=== PATIENT | male | born 1985 | race Caucasian/White ===

== ENCOUNTER 2018-11-18 15:21 | Inpatient (IN) | payer OTHER ==
[~2018-11-18] VITALS: Ht 188 cm; Wt 117.9 kg
[2018-11-18] MEDS ORDERED: HYDROCODON-ACE1 EAC7 PO (16:41)
[2018-11-18] MEDS ORDERED: KLONOPIN0.5 MG PO (16:42)
[2018-11-18 16:43] LABS: BASOPHILS 0.2 % (0-2); HEMATOCRIT 42.7 % (42.0-54.0); HEMOGLOBIN 15.2 g/dL (13.5-17.5); IMMATURE GRANULOCYTES 0.4 % (0-5); MCH 29.6 pg (26.0-34.0); MCHC 35.6 g/dL (31.0-37.0); MCV 83.1 fL (80.0-100.0); MEAN PLATELET VOLUME 9.7 fL (7.4-10.4); MONOCYTES 7.2 % (2-11); NEUTROPHILS 75.2 % (40-80); PLATELET COUNT 220 10x3/uL (130-400); RBC 5.14 10x6/uL (4.20-6.10); RDW 12.6 % (11.5-14.5); WBC 15.9 10x3/uL (4.8-10.8)
[2018-11-18] MEDS ORDERED: ZANAFLEX4 MG PO (16:44)
[2018-11-18 16:57] LABS: ALBUMIN 3.8 g/dL (3.4-5.0); ALKALINE PHOSPHATASE 80 U/L (46-116); ALT (SGPT) 27 U/L (10-68); BILIRUBIN - TOTAL 0.76 mg/dL (0.2-1.3); CALC OSMOLALITY 275 mosm/kg (275-300); CALCIUM 8.6 mg/dL (8.5-10.1); CARBON DIOXIDE 27.1 mmol/L (21.0-32.0); CHLORIDE - SERUM 101 mmol/L (98-107); CREATININE - SERUM 0.8 mg/dL (0.6-1.3); GLUCOSE 86 mg/dL (74-106); PROTEIN - SERUM 6.7 g/dL (6.4-8.2); SODIUM 139 mmol/L (136-145); UREA NITROGEN 9 mg/dL (7-18); eGFR NON AFRICAN AMERICAN > 90 mL/min (90-120)
[2018-11-18 17:03] VITALS: BP 158/72; Ht 188 cm; Wt 117.9 kg
[2018-11-18 18:57] LABS: APPEARANCE CLEAR (CLEAR); BILIRUBIN NEGATIVE (NEGATIVE); COLOR YELLOW (YELLOW); GLUCOSE NEGATIVE (NEGATIVE); KETONE NEGATIVE (NEGATIVE); NITRITE NEGATIVE (NEGATIVE); PROTEIN TRACE mg/dL (NEGATIVE); SPECIFIC GRAVITY 1.025 (1.005-1.020); UROBILINOGEN NORMAL (NORMAL)
--- NOTE | 2018-11-18 20:30 | NUR ---
PT SITTING UP IN BED WITHOUT DISTRESS, AOX4. IV LEFT HAND INFUSING NS @ 75. DENIES NEEDS. STATES PAIN 3/10 IN GROIN, HURTS WORSE WHEN AMBULATING. REQUESTED TO TAKE SHOWER, PT DID HIBI BATH AT THIS TIME. REMINDED PT HE IS NPO AFTER MN, VERBALIZED UNDERSTANDING. CONSENTS SIGNED. CL IN REACH, WILL CTM
[2018-11-18 20:34] VITALS: BP 126/69
--- NOTE | 2018-11-19 02:30 | NUR ---
PT STATES PAIN 8/10 AFTER AMBULATING TO BATHROOM. GAVE MORPHINE ORDERED, PT BEGAN FEELING NAUSEOUS, GAVE ZOFRAN. DENIES OTHER NEEDS. WILL CTM
[2018-11-19 04:32] LABS: BASOPHILS 0.2 % (0-2); EOSINOPHILS 2.4 % (0-7); HEMATOCRIT 40.2 % (42.0-54.0); IMMATURE GRANULOCYTES 0.2 % (0-5); LYMPHOCYTES 24.2 % (15-50); MCH 29.5 pg (26.0-34.0); MCHC 34.8 g/dL (31.0-37.0); MCV 84.8 fL (80.0-100.0); MEAN PLATELET VOLUME 9.7 fL (7.4-10.4); MONOCYTES 8.4 % (2-11); NEUTROPHILS 64.6 % (40-80); PLATELET COUNT 187 10x3/uL (130-400); RBC 4.74 10x6/uL (4.20-6.10); RDW 12.6 % (11.5-14.5); WBC 13.6 10x3/uL (4.8-10.8)
[2018-11-19 04:52] VITALS: BP 112/43
[2018-11-19 04:56] LABS: ALBUMIN 3.2 g/dL (3.4-5.0); ALKALINE PHOSPHATASE 73 U/L (46-116); ALT (SGPT) 23 U/L (10-68); BILIRUBIN - TOTAL 0.66 mg/dL (0.2-1.3); CALC OSMOLALITY 280 mosm/kg (275-300); CALCIUM 8.2 mg/dL (8.5-10.1); CARBON DIOXIDE 29.3 mmol/L (21.0-32.0); CHLORIDE - SERUM 105 mmol/L (98-107); CREATININE - SERUM 0.8 mg/dL (0.6-1.3); GLUCOSE 110 mg/dL (74-106); POTASSIUM - SERUM 4.4 mmol/L (3.5-5.1); PROTEIN - SERUM 6.4 g/dL (6.4-8.2); SODIUM 141 mmol/L (136-145); UREA NITROGEN 11 mg/dL (7-18); eGFR NON AFRICAN AMERICAN > 90 mL/min (90-120)
--- NOTE | 2018-11-19 07:25 | NUR ---
ALERT AND ORIENTED, RESTING IN BED. AT BEDSIDE. ABCESS TO RIGHT GROIN, RED AND WARM TO TOUCH. NO C/O PAIN. NO S/S OF ACUTE DISTRESS NOTED. IV TO LEFT HAND, NS INFUSING @ 75ML/HR. SITE PATENT WITHOUT REDNESS OR SWELLING. PT DENIES ANY NEEDS AT THIS TIME. CALL LIGHT IN REACH. WILL CONTINUE TO MONITOR.
[2018-11-19 07:55] VITALS: BP 128/71
[2018-11-19 12:32] VITALS: BP 127/73
[2018-11-19 13:30] VITALS: BP 131/73
[2018-11-19 18:24] VITALS: BP 130/60
--- NOTE | 2018-11-19 18:45 | NUR ---
I have reviewed this patient and I concur with the Shift Assessment completed by the Licensed Practical Nurse today this shift.
--- NOTE | 2018-11-19 19:08 | NUR ---
ALERT AND ORIENTED, RESTING IN BED. NO C/O PAIN. NO S/S OF ACUTE DISTRESS NOTED. CALL LIGHT IN REACH. PT DENIES ANY NEEDS.
--- NOTE | 2018-11-19 19:45 | NUR ---
PT SITTING UP IN BED WITHOUT DISTRESS, AOX4. PT JUST GOT BACK TO ROOM AFTER AMBULATING AROUND NURSES STATION. IV LEFT HAND INFUSING NS @ 75. DRESSING TO RIGHT GROIN CDI. DENIES NEEDS. CL IN REACH, WILL CTM
[2018-11-19 20:45] VITALS: BP 133/72
[2018-11-20 04:56] VITALS: BP 135/61
[2018-11-20 06:54] LABS: BASOPHILS 0.2 % (0-2); EOSINOPHILS 3.8 % (0-7); HEMATOCRIT 41.1 % (42.0-54.0); HEMOGLOBIN 14.2 g/dL (13.5-17.5); IMMATURE GRANULOCYTES 0.3 % (0-5); LYMPHOCYTES 20.4 % (15-50); MCH 29.3 pg (26.0-34.0); MCHC 34.5 g/dL (31.0-37.0); MCV 84.7 fL (80.0-100.0); MONOCYTES 8.4 % (2-11); NEUTROPHILS 66.9 % (40-80); RBC 4.85 10x6/uL (4.20-6.10); RDW 12.6 % (11.5-14.5); WBC 12.1 10x3/uL (4.8-10.8)
[2018-11-20 06:57] LABS: PLATELET COUNT 230 10x3/uL (130-400)
[2018-11-20 06:59] LABS: CALC OSMOLALITY 277 mosm/kg (275-300); CALCIUM 8.1 mg/dL (8.5-10.1); CARBON DIOXIDE 30.2 mmol/L (21.0-32.0); CHLORIDE - SERUM 104 mmol/L (98-107); CREATININE - SERUM 0.8 mg/dL (0.6-1.3); GLUCOSE 115 mg/dL (74-106); POTASSIUM - SERUM 4.3 mmol/L (3.5-5.1); SODIUM 140 mmol/L (136-145); UREA NITROGEN 8 mg/dL (7-18); eGFR NON AFRICAN AMERICAN > 90 mL/min (90-120)
--- NOTE | 2018-11-20 08:00 | NUR ---
ALERT AND ORIENTED. LUNGS CLEAR BILATERALLY IN ALL HUANG. HEART SOUNDS S1 AND S2 HEARD IN ALL HUANG. BOWEL SOUNDS ACTIVE X 4. DRSG IN PLACE TO RIGHT GROIN. IV TO LEFT HAND PATENT WITHOUT REDNESS. DENIES NEEDS. BED LOW. AT BEDSIDE. CALL MITCHELL AND PERSONAL ITEMS IN REACH. WILL CONTINUE TO MONITOR.
--- NOTE | 2018-11-20 08:08 | OP ---
PATIENT NAME: ALBINO PETTY MEDICAL RECORD: [id number] :85 LOCATION:D.MS [id number] ADMISSION DATE:11/18/18 SURGEON: HARISH REIS MD DATE OF OPERATION: 11/19/2018 SURGEON: Harish Reis MD PREOPERATIVE DIAGNOSIS: Right groin cellulitis with abscess. POSTOPERATIVE DIAGNOSIS: Right groin cellulitis with abscess. PROCEDURE PERFORMED: Incision and drainage of complicated multiloculated right groin abscess. Abscess was 10 cm in width, 8 cm in length and 6 cm in depth over the right groin. COMPLICATIONS: None. SPECIMENS: Anaerobic and aerobic tissue cultures. Case was grossly infected. ANESTHESIA: General. OPERATIVE COURSE: After consent was obtained, the patient was taken to the operating room and placed in the supine position on the operating table. Next, general anesthesia was given via endotracheal intubation after a timeout was performed to confirm the correct patient and procedure. The right groin was prepped and draped in typical sterile fashion. An incision was made with a 15-blade scalpel over the area of greatest fluctuance. Approximately, 80 cc of brown purulent fluid was expressed from wound. Anaerobic and aerobic cultures were collected. Specimen was sent for Gram stain. At this time, after the skin incision was made using blunt finger dissection, all loculations within the abscess cavity were bluntly dissected. The wound was then copiously irrigated with normal saline and peroxide. The abscess cavity measured 10 cm in greatest length x 8 cm in width x 6 cm in depth. Once the wound was irrigated and cleansed, a Kerlix soaked in half Betadine and half peroxide was packed into the abscess cavity. Thereafter, the wound was covered with sterile gauze and tape. At the end of the case, all needle and instrument was correct. No complications occurred. The patient was extubated and transferred to PACU in stable condition. TRANSINT:[id number] Voice Confirmation ID: [id number] DOCUMENT ID: [id number] HARISH REIS MD at 0808 CC: [id number] DICTATION DATE: 11/19/18 1454 GEAR FINISHER: 11/19/18 2347 ADM IN [place] [id number] [place] [address]
[2018-11-20 08:56] VITALS: BP 132/69
--- NOTE | 2018-11-20 09:43 | NUR ---
DRSG CHANGED TO RIGHT GROIN PER ORDER. NO SIGNS SYMPTOMS INFECTION PRESENT.
--- NOTE | 2018-11-20 10:59 | NUR ---
VANCOMYCIN CONTINUES INFUSING. WILL HANG MERREM AFTER VANC.
--- NOTE | 2018-11-20 11:26 | NUR ---
RESTING IN BED. AT BEDSIDE. DENIES PAIN. DENIES NEEDS. WILL CONTINUE TO MONITOR.
[2018-11-20 11:54] VITALS: BP 141/70
--- NOTE | 2018-11-20 14:33 | NUR ---
RESTING IN BED. DENIES NEEDS. WILL CONTINUE TO MONITOR.
[2018-11-20 17:28] VITALS: BP 129/63
[2018-11-20 20:55] VITALS: BP 118/65
[2018-11-21 05:56] VITALS: BP 119/67
--- NOTE | 2018-11-21 07:36 | NUR ---
ALERT AND ORIENTED. LUNGS CLEAR BILATERALLY IN ALL HUANG. HEART SOUNDS S1 AND S2 HEARD IN ALL HUANG. BOWEL SOUNDS ACTIVE X 4. DRSG INTACT TO RIGHT GROIN I/D INCISION. IV TO LEFT HAND PATENT WITHOUT REDNESS. DENIES PAIN. DENIES NEEDS. REFUSES SCDS. BED LOW. CALL MITCHELL AND PERSONAL ITEMS IN REACH. WILL CONTIUE TO [facility].
[2018-11-21] MEDS ORDERED: SULFAMETHOXAZOL1 TA2 PO (08:02)
[2018-11-21] MEDS ORDERED: HYDROCODON-ACE1 EAC7 PO (08:03)
[2018-11-21 08:16] VITALS: BP 130/74
[2018-11-21 09:02] LABS: BASOPHILS 0.3 % (0-2); EOSINOPHILS 5.6 % (0-7); HEMATOCRIT 41.2 % (42.0-54.0); HEMOGLOBIN 14.3 g/dL (13.5-17.5); IMMATURE GRANULOCYTES 0.1 % (0-5); LYMPHOCYTES 26.6 % (15-50); MCH 29.4 pg (26.0-34.0); MCHC 34.7 g/dL (31.0-37.0); MCV 84.8 fL (80.0-100.0); MEAN PLATELET VOLUME 9.8 fL (7.4-10.4); MONOCYTES 5.4 % (2-11); PLATELET COUNT 242 10x3/uL (130-400); RBC 4.86 10x6/uL (4.20-6.10); RDW 12.4 % (11.5-14.5)
[2018-11-21 09:03] LABS: WBC 7.6 10x3/uL (4.8-10.8)
[2018-11-21 09:21] LABS: CALC OSMOLALITY 282 mosm/kg (275-300); CALCIUM 8.6 mg/dL (8.5-10.1); CARBON DIOXIDE 32.3 mmol/L (21.0-32.0); CHLORIDE - SERUM 102 mmol/L (98-107); CREATININE - SERUM 0.7 mg/dL (0.6-1.3); GLUCOSE 136 mg/dL (74-106); POTASSIUM - SERUM 4.2 mmol/L (3.5-5.1); SODIUM 142 mmol/L (136-145); UREA NITROGEN 8 mg/dL (7-18); eGFR NON AFRICAN AMERICAN > 90 mL/min (90-120)
--- NOTE | 2018-11-21 10:17 | NUR ---
WOUND CARE PROVIDED PER ORDER. NO SIGNS SYMPTOMS INFECTION NOTED.
--- NOTE | 2018-11-21 10:33 | NUR ---
RESTING IN BED. DENIES NEEDS. WILL CONTINUE TO MONITOR.
--- NOTE | 2018-11-21 12:18 | MORECARE ---
CASE MANAGEMENT DISCHARGE SUMMARY PATIENT: ALBINO PETTY UNIT: [id number] ADM DATE: 11/18/18 AGE: 32 : [birth year] SEX: M ROOM/BED: D.2218 AUTHOR: SAURABH THURMAN PHYSICIAN: REFERRING PHYSICIAN: DEREK BANKS DO DATE OF SERVICE: 11/21/18 Discharge Plan Patient Name: ALBINO PETTY [facility] [facility] 1985 Planned Disposition: Home Anticipated Discharge Date: Discharge Date: Expected LOS: Initial Reviewer: [email or web address] Initial Review Date: 11/18/2018 Generated: 11/21/18 1:17 pm DCPIA - Discharge Planning Initial Assessment Updated by [email or web address]: Susanne Puga on 11/21/18 12:17 pm * Is the patient Alert and Oriented? Yes * How many steps to enter\exit or inside your home? * PCP JOECLYN * Pharmacy [facility] ON [facility] * Preadmission Environment Home with Family * ADLs Independent * Equipment None * List name and contact numbers for known caregivers / representatives who currently or will assist patient after discharge: CARLOS ()[phone] * Verbal permission to speak to the caregivers and representatives has been obtained from the patient. N/A * Community resources currently utilized None * Additional services required to return to the preadmission environment? No * Can the patient safely return to the preadmission environment? Yes * Has this patient been hospitalized within the prior 30 days at any hospital? No Patient Name: ALBINO PETTY Page [id number] at 1218 All edits/amendments must be made on the electronic document DICTATION DATE: 11/21/18 1217 MILLER HELPER: JAIMEE 11/21/18 1217 RPT#: [id number] DC DATE: STATUS: ADM IN [facility] [address] [place] [address] END OF REPORT
--- NOTE | 2018-11-21 12:28 | MORECARE ---
CASE MANAGEMENT DISCHARGE SUMMARY PATIENT: ALBINO PETTY UNIT: [id number] ADM DATE: 11/18/18 AGE: 32 : 85 SEX: M ROOM/BED: D.2218 AUTHOR: OLMANDOC PHYSICIAN: REFERRING PHYSICIAN: DEREK BANKS DO DATE OF SERVICE: 11/21/18 Discharge Plan Patient Name: ALBINO PETTY Facility: [facility]:[place] : 1985 Planned Disposition: Home Anticipated Discharge Date: Discharge Date: Expected LOS: Initial Reviewer: [email or web address] Initial Review Date: 11/18/2018 Generated: 11/21/18 1:27 pm Comments DCP- Discharge Planning Updated by [email or web address]: Susanne Puga on 11/21/18 11:[address] Patient Name: ALBINO PETTY Admission Status: Urgent Accout number: [id number] Admission Date: 11-18-2018 : 1985 Admission Diagnosis:CUTANEOUS ABSCESS OF GROIN Attending: DEREK BANKS Current LOS: 3 Anticipated DC Date: Planned Disposition: Home Primary Insurance: [facility] Discharge Planning Comments: CM met with patient to complete initial dc planning assessment. CM educated patient on the CM role and verbal consent given by patient to complete assessment. Patient lives at home with his where he is independent with his care. At discharge patient plans to return home and feels this is a safe discharge. Patient/family will do own wound care. CM discussed availability of home health, rehab services, and medical equipment. He does not use any DME. Patient denied known discharge needs at this time. CM will continue to follow and will assist as needed with dc plans/needs. Washer Assembler: Susanne Puga DCPIA - Discharge Planning Initial Assessment Updated by [email or web address]: Susanne Puga on 11/21/18 12:17 pm * Is the patient Alert and Oriented? Yes * How many steps to enter\exit or inside your home? * PCP JOCELYN * Pharmacy [facility] ON [address] * Preadmission Environment Home with Family * ADLs Independent * Equipment None * List name and contact numbers for known caregivers / representatives who currently or will assist patient after discharge: CARLOS [phone] * Verbal permission to speak to the caregivers and representatives has been obtained from the patient. N/A * Community resources currently utilized None * Additional services required to return to the preadmission environment? No * Can the patient safely return to the preadmission environment? Yes * Has this patient been hospitalized within the prior 30 days at any hospital? No Last DP export: 11/21/18 11:18 a Patient Name: ALBINO PETTY Page [phone] at 1228 All edits/amendments must be made on the electronic document DICTATION DATE: 11/21/18 122 MANAGER LABOR RELATIONS: JAIMEE 11/21/187 RPT#: [id number] DC DATE: STATUS: ADM IN [facility] [address] [place] [address] END OF REPORT
--- NOTE | 2018-11-21 13:19 | NUR ---
RESTING IN BED. DENIES PAIN. DENIES NEEDS. WILL CONTINUE TO MONITOR.
--- NOTE | 2018-11-21 14:27 | NUR ---
DISCHARGE EDUCATION PROVIDED BOTH WRITTEN AND VERBAL. VERBALIZED UNDERSTANDING. DENIES FURTHER QUESTIONS. AT BEDSIDE VERBALIZED UNDERSTANDING ON WOUND CARE. WOUND CARE SUPPLIES SENT WITH PATIENT. DENIES FURTHER NEEDS. CURRENT WOUND DRSG C/D/I. IV REMOVED FROM LEFT HAND WITH TIP INTACT. PATIENT DISCHARGED HOME WITH WITH ALL BELONGINGS.
--- NOTE | 2018-11-22 15:21 | MORECARE ---
CASE MANAGEMENT DISCHARGE SUMMARY PATIENT: ALBINO PETTY UNIT: [id number] ADM DATE: 11/18/18 AGE: 32 : 85 SEX: M ROOM/BED: D.2218 AUTHOR: OLMANDOC PHYSICIAN: REFERRING PHYSICIAN: DEREK BANKS DO DATE OF SERVICE: 11/22/18 Discharge Plan Patient Name: ALBINO PETTY Facility: [facility]:[place] : 1985 Planned Disposition: Home Anticipated Discharge Date: Discharge Date: 11/21/2018 Expected LOS: Initial Reviewer: [email or web address] Initial Review Date: 11/18/2018 Generated: 11/22/18 4:20 pm Comments DCP- Discharge Planning Updated by [email or web address]: Susanne Puga on 11/21/18 11:[address] Patient Name: ALBINO PETTY Admission Status: Urgent Accout number: [id number] Admission Date: 11-18-2018 : 1985 Admission Diagnosis:CUTANEOUS ABSCESS OF GROIN Attending: DEREK BANKS Current LOS: 3 Anticipated DC Date: Planned Disposition: Home Primary Insurance: [facility] Discharge Planning Comments: CM met with patient to complete initial dc planning assessment. CM educated patient on the CM role and verbal consent given by patient to complete assessment. Patient lives at home with his where he is independent with his care. At discharge patient plans to return home and feels this is a safe discharge. Patient/family will do own wound care. CM discussed availability of home health, rehab services, and medical equipment. He does not use any DME. Patient denied known discharge needs at this time. CM will continue to follow and will assist as needed with dc plans/needs. Community Specialist: Susanne Puga DCPIA - Discharge Planning Initial Assessment Updated by [email or web address]: Susanne Puga on 11/21/18 12:17 pm * Is the patient Alert and Oriented? Yes * How many steps to enter\exit or inside your home? * PCP JOCELYN * Pharmacy [facility] [address] * Preadmission Environment Home with Family * ADLs Independent * Equipment None * List name and contact numbers for known caregivers / representatives who currently or will assist patient after discharge: CARLOS ()[phone] * Verbal permission to speak to the caregivers and representatives has been obtained from the patient. N/A * Community resources currently utilized None * Additional services required to return to the preadmission environment? No * Can the patient safely return to the preadmission environment? Yes * Has this patient been hospitalized within the prior 30 days at any hospital? No Last DP export: 11/21/18 11:28 a Patient Name: ALBINO PETTY Page 39402 at 1521 All edits/amendments must be made on the electronic document DICTATION DATE: 11/22/18 152 NEEDLE MOLDER: JAIMEE 11/22/18 1520 RPT#: [id number] DC DATE:11/21/18 STATUS: DIS IN [facility] [address] [place] [address] END OF REPORT
== END 2018-11-21 14:38 | disposition home or self-care (01) | DRG 579 ==
LOC: D.MS 15:21
PROVIDERS: Internal Medicine Nephrology; Surgery; ADMIT Family Medicine; ATTEND Family Medicine
PROC: 0Y950ZZ Drainage of Right Inguinal Region, Open Approach (ICD-10-PCS; principal; 2018-11-19 10:00)
DX: L02.214 Cutaneous abscess of groin (principal); A41.9 Sepsis, unspecified organism; N39.0 Urinary tract infection, site not specified; F41.9 Anxiety disorder, unspecified; M54.9 Dorsalgia, unspecified; B95.62 Methicillin resistant Staphylococcus aureus infection as the cause of diseases classified elsewhere

== ENCOUNTER 2020-07-01 07:20 | Day surgery (SDC) | payer BC, OTHER ==
[2020-06-30 12:40] LABS: BASOPHILS 0.3 % (0-2); EOSINOPHILS 1.8 % (0-7); HEMATOCRIT 46.1 % (42.0-54.0); HEMOGLOBIN 15.8 g/dL (13.5-17.5); IMMATURE GRANULOCYTES 0.3 % (0-5); LYMPHOCYTE ABS# 2.75 10x3/uL (1.32-3.57); LYMPHOCYTES 24.7 % (15-50); MCH 29.3 pg (26.0-34.0); MCHC 34.3 g/dL (31.0-37.0); MCV 85.4 fL (80.0-100.0); MONOCYTES 5.3 % (2-11); NEUTROPHIL ABS# 7.55 10x3/uL (1.78-5.38); NEUTROPHILS 67.6 % (40-80); PLATELET COUNT 277 10x3/uL (130-400); WBC 11.2 10x3/uL (4.8-10.8)
[2020-06-30 12:51] LABS: CALC OSMOLALITY 281 mosm/kg (275-300); CALCIUM 9.4 mg/dL (8.5-10.1); CARBON DIOXIDE 28.5 mmol/L (21.0-32.0); CHLORIDE - SERUM 104 mmol/L (98-107); CREATININE - SERUM 0.9 mg/dL (0.6-1.3); GLUCOSE 126 mg/dL (74-106); POTASSIUM - SERUM 4.1 mmol/L (3.5-5.1); SODIUM 141 mmol/L (136-145); UREA NITROGEN 9 mg/dL (7-18); eGFR NON AFRICAN AMERICAN > 90 mL/min (90-120)
[~2020-07-01] VITALS: Ht 188 cm; Wt 127.7 kg
[~2020-07-01 07:20] MED LIST: HYDROCODON-ACE1 EAC7 PO; KLONOPIN0.5 MG PO; SULFAMETHOXAZOL1 TA2 PO; ZANAFLEX4 MG PO
[2020-07-01 07:32] VITALS: BP 125/85; Ht 188 cm; Wt 127.7 kg
[2020-07-01] MEDS ORDERED: HYDROCODON-ACE1 EA10 PO (10:01)
--- NOTE | 2020-07-01 12:13 | NUR ---
1200 PT ASLEEP AND SATS ARE 89% O2 PER NC APPLIED AT 2 LITERS
--- NOTE | 2020-07-01 13:08 | NUR ---
PT VOIDED. DC'D IV CATH FULLY INTACT. DC INSTRUCTIONS GIVEN TO PT/SPOUSE. STATE UNDERSTANDING. PT LEFT UNIT VIA WC AT 1300.
--- NOTE | 2020-07-01 14:18 | OP ---
PATIENT NAME: ALBINO PETTY MEDICAL RECORD: [id number] :85 LOCATION:[facility] ADMISSION DATE: SURGEON: ANDRE VELEZ MD DATE OF OPERATION: 07/01/2020 PREOPERATIVE DIAGNOSES: 1. Ventral hernia. 2. Obesity with a BMI of 36. POSTOPERATIVE DIAGNOSES: 1. Ventral hernia. 2. Obesity with a BMI of 36. PROCEDURE: Ventral hernia repair with 4.[address] mesh. SURGEON: Andre Velez MD REPORT OF PROCEDURE: The patient's abdomen was prepped and draped in sterile fashion. A semicircular incision was made on the inferior aspect of the umbilicus. Electrocautery was used to dissect through the subcutaneous tissues. We immediately encountered a fatty bulge of tissue. As we dissected around this, we eventually got to the base of the patient's umbilicus, went ahead and elevated the umbilicus and could see the remaining aspects of the fascial floor. The fatty defect was then freed up from the surrounding tissues and we ended up high ligating this fatty tissue revealing an approximately 2 cm fascial defect. The fascia was cleared off above and below. Once we had the fascia completely excised and cleared off, then a 4.[address] mesh was inserted in an underlay fashion and sutured down on 4 sides with interrupted 0 Prolenes. We irrigated out the wound bed with normal saline. The fascia was closed with running 0 Vicryl. The umbilicus had a small defects within it and this was oversewn with a subcutaneous 3-0 Vicryl. We then sutured the umbilicus to the fascia with a single interrupted 3-0 Vicryl and the subcutaneous tissues were reapproximated with interrupted 3-0 Vicryl. The wound was infused with a total of 10 mL of 0.25% Marcaine with epinephrine and then closed with running subcutaneous 5-0 Monocryl. COMPLICATIONS: None. CONDITION: Stable. ANESTHESIA: General endotracheal and local. BLOOD LOSS: Minimal. TRANSINT:[id number] Voice Confirmation ID: [id number] DOCUMENT ID: [id number] ANDRE VELEZ MD at 1418 CC: DEREK BANKS DO [id number] DICTATION DATE: 07/01/[address] REPORTER: 07/01/20 1131 [facility] 07/01/20 [facility] [address] [place] [address]
== END 2020-07-01 13:00 | disposition home or self-care (01) ==
LOC: D.OPS 07:20
PROVIDERS: ATTEND Surgery
DX: K43.9 Ventral hernia without obstruction or gangrene (principal); E66.9 Obesity, unspecified; Z68.36 Body mass index [BMI] 36.0-36.9, adult